=== PATIENT | female | born 1965 | race Caucasian/White ===

== ENCOUNTER 2020-06-26 15:23 | Outpatient (REF) | payer OTHER, SELFPAY ==
--- NOTE | 2020-06-26 15:27 | MM_ITS ---
EXAMINATION: MM SCREENING DIGITAL BREAST TOMOSYNTHESIS, BILATERAL CLINICAL INFORMATION: Screening. Asymptomatic. The lifetime risk of breast cancer based on the Tyrer-Cuzick Model is 9%. COMPARISON: Mammography: 02/02/2019, 01/28/2018, 06/04/2016 TECHNIQUE: Digital breast tomosynthesis is performed in both the craniocaudal and mediolateral oblique views along with computer-aided detection (CAD). Synthesized 2D images are generated from the tomosynthesis. FINDINGS: There are scattered areas of fibroglandular density (ACR BI-RADS breast composition Category b). There are no significant masses, abnormal calcifications, or other abnormalities. Axillary nodes stable. Skin contours are smooth. MM/MM tomosynthesis screening BI IMPRESSION: No mammographic evidence of malignancy. ASSESSMENT: BI-RADS 1: Negative RECOMMENDATION: Routine annual mammography screening. This patient's information was entered into a reminder system with a target due date for their next mammogram.
== END 2020-06-26 15:24 | disposition home or self-care (01) ==
LOC: HO.MAMMO 15:23
PROVIDERS: PCP Nurse Practitioner Family; Visit Provider Nurse Practitioner Family
DX: Z12.31 Encounter for screening mammogram for malignant neoplasm of breast (principal)
CPT/HCPCS: 77063; 77067

== ENCOUNTER 2021-07-09 14:43 | Outpatient (REF) | payer OTHER, SELFPAY ==
--- NOTE | ~2021-07-09 | MM_ITS ---
EXAMINATION: MM SCREENING DIGITAL BREAST TOMOSYNTHESIS, BILATERAL CLINICAL INFORMATION: Screening. Asymptomatic. The lifetime risk of breast cancer based on the Tyrer-Cuzick Model is 7%. COMPARISON: Mammography: 06/26/2020, 02/02/2019, 01/28/2018 TECHNIQUE: Digital breast tomosynthesis is performed in both the craniocaudal and mediolateral oblique views along with computer-aided detection (CAD). Synthesized 2D images are generated from the tomosynthesis. FINDINGS: There are scattered areas of fibroglandular density (ACR BI-RADS breast composition Category b). There are no significant masses, abnormal calcifications, or other abnormalities. Breast tissue composition borders on predominantly fatty. Background stromal markings are stable. No significant changes. MM/MM tomosynthesis screening BI IMPRESSION: No mammographic evidence of malignancy. ASSESSMENT: BI-RADS 1: Negative RECOMMENDATION: Routine annual mammography screening. This patient's information was entered into a reminder system with a target due date for their next mammogram.
== END 2021-07-09 14:44 | disposition home or self-care (01) ==
LOC: HO.MAMMO 14:43
PROVIDERS: Visit Provider Nurse Practitioner Family
DX: Z12.31 Encounter for screening mammogram for malignant neoplasm of breast (principal)
CPT/HCPCS: 77063; 77067

== ENCOUNTER 2022-07-11 14:40 | Outpatient (REF) | payer OTHER, SELFPAY ==
--- NOTE | ~2022-07-11 | MM_ITS ---
EXAMINATION: MM SCREENING DIGITAL BREAST TOMOSYNTHESIS, BILATERAL CLINICAL INFORMATION: Screening. Asymptomatic. The lifetime risk of breast cancer based on the Tyrer-Cuzick Model is 6%. COMPARISON: Mammography: 07/09/2021, 06/26/2020, 02/02/2019, 01/28/2018 TECHNIQUE: Digital breast tomosynthesis is performed in both the craniocaudal and mediolateral oblique views along with computer-aided detection (CAD). Synthesized 2D images are generated from the tomosynthesis. Additional right CC view is obtained. FINDINGS: There are scattered areas of fibroglandular density (ACR BI-RADS breast composition Category b). Breast tissue composition borders on predominantly fatty. Background stromal markings are normal. Right breast has interval benign-appearing oval circumscribed nodule anterior periareolar upper outer breast, under 1 cm. The remainder of the bilateral breasts are similar to prior studies. There is no architectural abnormality. No abnormal calcifications. The axilla and skin contours are unremarkable. MM/MM tomosynthesis screening BI IMPRESSION: Right: -Benign appearing smooth oval nodule periareolar right breast. Left: -No mammographic evidence of malignancy. ASSESSMENT: BI-RADS 0: Incomplete - Need Additional Imaging Evaluation RECOMMENDATION: 1. Targeted ultrasound right breast. 2. Radiology department staff will arrange for the additional imaging. This patient's information was entered into a reminder system with a target due date for their next mammogram.
== END 2022-07-11 14:41 | disposition home or self-care (01) ==
LOC: HO.MAMMO 14:40
PROVIDERS: Visit Provider Nurse Practitioner Family
DX: Z12.31 Encounter for screening mammogram for malignant neoplasm of breast (principal)
CPT/HCPCS: 77063; 77067

== ENCOUNTER 2022-07-16 15:27 | Outpatient (REF) | payer OTHER, SELFPAY ==
--- NOTE | ~2022-07-16 | US_ITS ---
EXAMINATION: US DIAGNOSTIC ULTRASOUND BREAST, RIGHT CLINICAL INFORMATION: Recall from screening for new oval nodule periareolar right breast. COMPARISON: Screening mammography 07/11/2022, 07/09/2021, 06/26/2020. TECHNIQUE: Ultrasound right breast is targeted to the upper outer periareolar region using grayscale imaging and color Doppler without and with harmonics. FINDINGS: There is a small circumscribed mildly complicated cyst around 0.5 cm at 9:00 position 4 cm from nipple with avascular internal septations. No associated color flow. There is increased through-transmission of sound. There is no solid mass, architectural abnormality, duct ectasia, or edema in the soft tissue planes. Results are discussed with the patient at time of visit. The ultrasound finding has benign appearance. US/US breast RT limited IMPRESSION: -Mildly complicated cyst 9:00 periareolar breast with fine internal septations corresponding to mammography. ASSESSMENT: BI-RADS 3: Probably Benign RECOMMENDATION: Targeted ultrasound right breast in 6 months. This patient's information was entered into a reminder system with a target due date for their next mammogram.
== END 2022-07-16 15:28 | disposition home or self-care (01) ==
LOC: HO.MAMMO 15:27
PROVIDERS: Visit Provider Nurse Practitioner Family
DX: R92.2 Inconclusive mammogram (principal)
CPT/HCPCS: 76642

== ENCOUNTER 2023-02-06 14:46 | Outpatient (REF) | payer OTHER, SELFPAY ==
--- NOTE | ~2023-02-06 | US_ITS ---
EXAMINATION: US DIAGNOSTIC ULTRASOUND BREAST, RIGHT CLINICAL INFORMATION: 6 month Follow-up right breast probably benign complicated cyst 9:00 axis, 4 cm from the nipple.. COMPARISON: 07/16/2022. TECHNIQUE: Ultrasound of the breast is performed with real-time dueñas scale imaging and color Doppler. FINDINGS: There is no focal suspicious finding. There is no solid mass, architectural abnormality, duct ectasia, or edema in the soft tissue planes. The previously seen complicated cyst has decreased significantly in size and no measures 3 mm in diameter at the 9:00 axis, 4 cm from the nipple. It now meets criteria for a simple cyst and is benign. No further follow-up recommended. Results were discussed with the patient at time of visit. US/US breast RT limited mamm only IMPRESSION: Benign 3 mm cyst right breast 9:00 axis. No findings suspicious for malignancy. Recommend the patient resume annual screening mammography. ASSESSMENT: BI-RADS 2: Benign RECOMMENDATION: Routine annual mammography screening. This patient's information was entered into a reminder system with a target due date for their next mammogram.
== END 2023-02-06 14:47 | disposition home or self-care (01) ==
LOC: HO.MAMMO 14:46
PROVIDERS: Visit Provider Nurse Practitioner Family
DX: R92.2 Inconclusive mammogram (principal)
CPT/HCPCS: 76642

== ENCOUNTER → 2023-02-06 15:00 | Outpatient (BNV) | payer OTHER, SELFPAY | PROVIDERS: Visit Provider Radiology Diagnostic Radiology | DX: N60.01 Solitary cyst of right breast (principal) | CPT/HCPCS: 76642 ==

== ENCOUNTER 2023-07-15 14:40 | Outpatient (REF) | payer OTHER, SELFPAY | END 2023-07-15 14:41 | disposition home or self-care (01) | LOC: HO.MAMMO 14:40 | PROVIDERS: PCP Nurse Practitioner Family; Visit Provider Nurse Practitioner Family | DX: Z12.31 Encounter for screening mammogram for malignant neoplasm of breast (principal) | CPT/HCPCS: 77063; 77067 ==

== ENCOUNTER → 2023-07-15 15:00 | Outpatient (BNV) | payer OTHER, SELFPAY | PROVIDERS: PCP Nurse Practitioner Family; Visit Provider Radiology Diagnostic Radiology | DX: Z12.31 Encounter for screening mammogram for malignant neoplasm of breast (principal) | CPT/HCPCS: 77063; 77067 ==

== ENCOUNTER 2023-08-27 09:40 | Outpatient (REF) | payer OTHER, SELFPAY ==
--- NOTE | ~2023-08-27 | XR_ITS ---
EXAMINATION: XR SHOULDER, RIGHT CLINICAL INFORMATION: Pain in right shoulder. COMPARISON: None available. TECHNIQUE: Two views of the right shoulder. FINDINGS: Mild degenerative changes in the acromioclavicular joint with joint space narrowing and hypertrophic change. Glenohumeral alignment preserved. Small calcifications in the soft tissue along the superolateral aspect of the humeral head are suggestive of rotator cuff pathology. Tiny calcification in the soft tissue superior to the glenoid. XR/XR shoulder RT min 2V IMPRESSION: 1. Mild degenerative changes in the acromioclavicular joint. 2. Small calcifications in the soft tissue along the superolateral aspect of the humeral head are suggestive of rotator cuff pathology.
== END 2023-08-27 09:41 | disposition home or self-care (01) ==
LOC: HO.HOSX 09:40
PROVIDERS: Visit Provider Orthopaedic Surgery
DX: M25.511 Pain in right shoulder (principal)
CPT/HCPCS: 73030

== ENCOUNTER 2023-08-27 14:44 | Outpatient (AMB) | payer OTHER, SELFPAY ==
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
== END 2023-08-27 15:24 | disposition home or self-care (01) ==
PROVIDERS: PCP Nurse Practitioner Family; Visit Provider Orthopaedic Surgery
DX: M25.511 Pain in right shoulder (principal)
CPT/HCPCS: 99202

== ENCOUNTER 2024-07-20 14:37 | Outpatient (REF) | payer BC, SELFPAY ==
--- OUTSIDE RECORDS SUMMARY | 2024-07-20 15:38 | XMS_ITS ---
Author Organization [facility] Address [address] [place] [address] Care Team Providers Care Vocational Education Teacher Name Role Phone Jessica Alexander NP Primary Care Provider Amy Lofton Unavailable [phone] Allergies Allergen (clinical drug ingredient) Drug/Non Drug Allergy documented on EMR Reaction Allergy Type Onset Date Status sulfamethoxazole / trimethoprim Bactrim Unknown Drug Allergy Active Eggs or Egg-derived Products Unknown Drug Allergy Active REASON FOR VISIT Pcp-02/23, Wart(s), Skin Problem Medications Medication SIG (Take, Route, Frequency, Duration) Notes Start Date End Date Status Ibuprofen 800 MG 1 tablet Orally Thre e times a day for 30 day(s) 07/04/2015 Not-Taking Gabapentin 400 MG 1 capsule Orally onc e a day at bedtime for 30 day(s) 08/01/2015 Not-Taking zzzAFO-fixed . 1 . Wear Daily for . 05/11/2015 Not-Taking Nitro-Bid 2 % as directed Transdermal apply bid to right forefoot for 30 days 08/16/2015 Not-Taking zzzAFO-fixed . 1 .please accomodate for painful mtpj skin lesion Wear Daily for . Not-Taking AFO-fixed . 1 . Wear daily for . 01/27/2020 Active Antibiotic 3x 10days Not-Ananda mata Clotrimazole-Betametha sone 1-0.05 % 1 application Externally Twice a day 05/05/2024 Active Simvastatin 20 MG as directed Orally Once a day Active Custom Orthotics as directed 10/24/2016 Active Social History Tobacco Use: Social History Observation Description Date Details (start date - stop date) Current Smoker NA - NA Tobacco Use/Smoking Question Answer Notes Are you a: current smoker How often do you smoke cigarettes? every day How many cigarettes a day do you smoke? 6-10 Tobacco use other than smoking: Question Answer Notes Are you an other tobacco user? No Problems Problem Type SNOMED Code ICD Code Onset Dates Problem Status W/U Status Risk Notes Problem Plantar wart (32588718) Plantar wart (B07.0) Active confirmed Vital Signs Height 5ft6in in 05/05/2024 Weight 155 lbs 05/05/2024 BMI 25.01 kg/m2 05/05/2024 Blood pressure systolic 124 mm Hg 05/05/20 24 Blood pressure diastolic 75 mm Hg 024 Procedures Procedure Date Ordered Date Performed Result Body Sit e 56602-Fnze Destruction, 1-14 05/05/2024 N/A Encounters Encounter Location Date Provider Diagnosis [facility] [address] [address] 05/05/2024 Amy Raza Right foot pain M79.671 ; Left foot pain M79.672 ; Skin rash R21 ; Nummular eczematous dermatitis L30.0 and Plantar wart B07.0 Assessments Encounter Date Diagnosis (ICD Code) Assessment Notes Treatment Notes Treatment Clinical Notes Section Notes 05/05/2024 Right foot pain (ICD-10 - M79.671) 05/05/2024 Left foot pain (ICD-10 - M79.672) 05/05/2024 Skin rash (ICD-10 - R21) 05/05/2024 Nummular eczematous dermatitis (ICD-10 - L30.0) 05/05/2024 Plantar wart (ICD-10 - B07.0) Plan Of Treatment Medication Medication Name Sig Start Date Stop Date Notes Clotrimazole-Betamethasone 1-0.05 % 1 application Externally Twice a day 05/05/2024 Pending Test Test Name Order Date 54980-Coqo Destruction, 1-14 05/05/2024 Next Appt Details Follow Up: prn, Reason: Provider Name:Amy floyd, 09/15/2024 03:15:00 PM, [address] [place], [address], Procedure Notes * Category Sub-Category Detail Notes Wart Treatment Procedure Verruca, as desc ribed in exam, were debrided to pin- point bleeding margins with sterile 15 surgical blade, silver nitrate chemocautery applied, recomm. immune-boosting meds such as zinc, recomm. follow up with topical chemosurgical agents, Pt defers any other forms of tx - 38004 Progress Notes * Deonna SWEENEYOB:1965 (59 yo F)Acc No.[id number]:05/05/2024 Progress Note Patient:?Brianda SWEENEY Provider:?Amy Raza DPM :1965???Age:59 Y???Sex:Female D ate:05/05/2024 Address:[address] [place] [address] Alexandre brewerENCOMPASS HEALTH RE[facility]ABIL[facility] H[facility] SHELBY COUNTYUJ-[id number] Pcp:Jessica Alexander NP Subjective: * Chief Complaints: * ???Pcp-02/23Wart(s)Skin Prob gail * HPI: ???Skin problems:?Pt States PCP Visit: ?DATE?02/18/2024 ?Nature:?itching.?Location:?B/L .?Duration:?several days.?Course:?worse.?Treatments:?medication ( Eucerin).? * ROS:?General/Constitutional:?Nausea?denies.?Vomiting?denies.?Hunger Thirst?denies.?Loss appetite?denies.?Chills?denies.?Fatigue?denies.?Fever?denies.?Night Sweats?denies.?Unexplained weight loss?denies.?Unexplained weight gain?denies.?HEENTM:?Dentures?denies.?Dizziness?denies.?Glasses/contacts?admits.?Retinopathy?de nies.?Blurred/double vision?denies.?TMJ?denies.?Discharge/drainage?denies.?Implants?denies.?Sore throat?denies.?Dental implants?denies.?Hard of hearing ?denies.?Difficulty chewing/swallowing/speaking?denies.?Nose bleeds?denies.?Sore mouth?denies.?Respiratory:?On Oxygen?denies.?Pneumonia/pleurisy?denies.?Bronchitis?denies.?Emphysema?denies.?C oughing?denies.?Cough blood?denies.?Shortness of breath?denies.?Wheezing?denies.?Cardiovascular:?Pacemaker?denies.?MVP?denies.?WPW?denies.?CHF?denies.?Heart attack?denies.?Septal defect?denies.?Rapid beat?denies.?Chest pain ?denies.?Atrial Fib.?denies.?Murmur/Palpitations?denies.?Gastrointestinal:?Hemorrhoids?denies.?Stomach/Abdominal pain?denies.?Dark blood stool?denies.?Irritable bowel ?denies.?Constipation?denies.?Diarrhea?denies.?Hematology:?Swelling?admits.?Clots?denies.?Varicose Veins?denies.?Bruising?denies.?Bleeding problem?denies.?Genitourinary:?Blood urine?denies.?Frequent/Painfu/urination/bladder control?denies.?Kidney stones?denies.?Infection (UTI)?denies.?Nephropathy?denies.?sex trans dis (STD)?denies.?Prostate?denies.?Musculoskeletal:?Hammertoes?admits.?Bunions?admits.?Back Pain?admits.?Muscle Cramps/ Resting?denies.?Muscle cramps / walking?denies.?Generalized aches and pains?denies.?Weakness?denies.?Integ.:?Garibay?denies.?Scars?denies.?Corns/calluses?admits.?Ingrown nails?denies.?Painful nails?denies.?Open Sores?denies.?Rashes?denies.?Neurologic:?Difficulty sleeping?denies.?Brain disorder?denies.?Numbness?denies.?Balance trouble?denies.?Confusion?denies.?Fainting/blackouts?denies.?Tingling?denies.?Tr emors?denies.? * Medical History:? * Surgical History:?hysterecto my 06/2012foot surgery HT right 4th 07/2015 * Hospitalization/Major Diagno stic Procedure:?[facility] [place] Right Foot Surgery from cut on leg 07/18/2015PCP - called Given Antibiotics 12/2021Urgent care - Cut leg got infection given Antibiotics 2x for 10 days 10/2021 * Family History:?Mother: chantel james?Father: , kidney/liver disease, diagnosed with Unspecified heart disease.?Daughter(s): alive.?Son(s): alive.?Spouse: alive.?2 son(s) , 1 daughter(s) . .? * Social History:?Tobacco Use:?Tobacco Use/Smoking?Are you a:?current smoker ?How often do you smoke cigarettes??every day ?How many cigarettes a day do you smoke??6-10 ?Tobacco use other than smoking?Are you an other tobacco user??No * Medications:?TakingSimvastat in 20 MG Tablet as directed Orally Once a day Custom Orthotics as directed AFO-fixed . Ankle-Foot Orthotic 1 . Wear daily Taking Simvastatin 20 MG Tablet as directed Orally Once a day Taking Custom Orthotics as directed Taking AFO-fixed . Ankle-Foot Orthotic 1 . Wear daily Not-Taking/PRNAntibiotic , Notes to Pharmacist: 3x 10dayszzzAFO-fixed . Ankle- Foot Orthotic 1 .please accomodate for painful mtpj skin lesion Wear Daily zzzAFO- fixed . Ankle-Foot Orthotic 1 . Wear Daily Nitro-Bid 2 % Ointment as directed Transdermal apply bid to right forefoot Ibuprofen 800 MG Tablet 1 tablet Orally Three times a day Gabapentin 400 MG Capsule 1 capsule Orally once a day at bedtime Medication List reviewed and reconciled with the patientNot-Taking/PRN Antibiotic , Notes to Pharmacist: 3x 10daysNot-Taking/PRN zzzAFO-fixed . Ankle-Foot Orthotic 1 .please accomodate for painful mtpj skin lesion Wear Daily Not-Taking/PRN zzzAFO-fixed . Ankle-Foot Orthotic 1 . Wear Daily Not-Taking/PRN Nitro-Bid 2 % Ointment as directed Transdermal apply bid to right forefoot Not-Taking/PRN Ibuprofen 800 MG Tablet 1 tablet Orally Three times a day Not-Taking/PRN Gabapentin 400 MG Capsule 1 capsule Orally once a day at bedtime Medication List reviewed and reconciled with the patient * Allergies:?BactrimEggs or Eg g-derived Productsyes[Allergies Verified] Objective: * Vitals:?Ht: 5ft6in, Wt:155, BMI:25.01, Shoe size: 7.5-8, BP:124/75mm Hg, Ht-cm: 167.64 cm, Wt-k.31 kg. * Examination: ???Dermatologic: ?SKIN FINDINGS:? Skin exam reveals Keratotic lesion(s) located at, SUB MTH (s), 3, B/L, Plantar, IPJ, TA, Skin exam reveals Keratotic lesion(s) located at, Medial, DIPJ, T9, Lateral, T8, TA, T1--btw toes , Skin shows sign(s) of, eczema patch(es), pruritus, excoriations, erythema, inflammation, B/L .?VERRUCA:?Reveals Multiple ( __2_ ), multi-loculated , mosaic, round, raised, flat-topped, petechial bleeding papulae(s), with cauliflower appearance and interrruption of skin lines, with pain to lateral compression, and size estimated at __2__ mm diameter, plantar Midfoot, B/L.?Neurological: ?SENSORY:?Neurological exam reveals intact sensorium, pain sensation normal, vibration sensation intact, pinprick sensation is normal in the lower extremities, Pt denies, anesthesia, burning, paresthesia, tingling, B/L.?Vascular: ?DP PULSES(B):?2/4, B/L.?PT PULSES(B):?2/4, B/L.? Assessment: * Assessment: 1.?Right foot pain - M79.671 (Primary)???2.?Left foot pain - M79.672???3.?Skin rash - R21???4.?Nummular eczematous dermatitis - L30.0???5.?Plantar wart - B07.0??? Plan: * Treatment: 2.?Plantar wart?Procedure: [id number]-Abrq Destruction, 14 * Procedures:?Wart Treatment:?Procedure?Verruca, as described in exam, were debrided to pin-point bleeding margins with sterile 15 surgical blade, silver nitrate chemocautery applied, recomm. immune-boosting meds such as zinc, recomm. follow up with topical chemosurgical agents, Pt defers any other forms of tx - 88423.? * Procedure Codes:?16673 Wart Destruction, -14, Modifiers: XS , GY * Preventive Medicine:? ??Counseling:?Discussion:?-13: Office or other outpatient visit for the evaluation and management of an established patient, which required a medically appropriate history and/or examination and LOW level of DECISION MAKING for: 1 STABLE ACUTE UNCOMPLICATED PROBLEM, 2 OR MORE MINOR PROBLEMS, OR 1 STABLE CHRONIC PROBLEM, THAT POSE(S) A LOW RISK FOR MORBIDITY/MORTALITY. The visit on the day of the encounter encompassed interpreting the data and educating the patient as to the nature of their condition, treatment options available according to their individual PMH, meds, allergies, and overall health/living conditions, as well as any potential risks or complications that may occur from a failure to adhere to, and participate in, the recommended course of therapy. The discussion included a complete verbal, and/or written explanation of the examination results, any x-rays taken, the proposed diagnosis, and outline of the treatment plan. A schedule for future care needs was also explained. The patient verbalized an understanding of the instructions at this time and agreed to be an active participant in their treatment. If the patient should think of any questions or concerns after the visit, I have encouraged the patient to call the office.?Dermatitis:?The patient was counseled on the diagnosis, potential etiologies, and treatment options for their skin condition. We discussed the risks and benefits of each option from performing no treatment, to utilizing OTC topical skin creams/ointments, to utilizing prescription topical creams/ointments, to utilizing customized compounded topical medications and use of nocturnal occlusion with any/all previously detailed therapies. We discussed the advantages and disadvantages of each possible treatment and importance for adherence to all the recommended therapies for optimum success and avoid potential complications such as open sore/infection/possible hospitalization. We discussed the potential effectiveness of each topical preparation as well as each ones possible side effects and/or patient medication interactions. Patient questions re: use, dosage, successful outcomes, and application consistency were reviewed and the patient verbalized that all answers were clearly understood. The patient has decided to apply Rx Hydrocortisone skin creams to their feet save the interspaces. Such was sent to their pharmacy at the time of visit.? * Follow Up:?prn * Images: * Sign off status: Completed true * Provider:?Amy Raza DPM Date:?07/06/2023 Generated for Dillon senior/Dell/Consueloitting on:?07/20/2024 03:38 PM EST History and Physical Notes * HPI (History of Present Illness) Category Sub-Category Detail Notes Category Not es Skin problems Nature: itching Location: B/L Duration: several days Course: worse Treatments: medication ( Eucerin ) Pt States PCP Visit: DATE: 02/18/2024 Examination Category Sub-Category Detail Notes Category Not es Neurological SENSORY: Neurological exa m reveals intact sensorium, pain sensation normal, vibration sensation intact, pinprick sensation is normal in the lower extremities, Pt denies, anesthesia, burning, paresthesia, tingling, B/L Dermatologic SKIN FINDINGS: Skin exam reveal s Keratotic lesion(s) located at, SUB MTH (s), 3, B/L, Plantar, IPJ, TA, Skin exam reveals Keratotic lesion(s) located at, Medial, DIPJ, T9, Lateral, T8, TA, T1--btw toes , Skin shows sign(s) of, eczema patch(es), pruritus, excoriations, erythema, inflammation, B/L VERRUCA: Reveals Multiple ( _ _2_ ), multi-loculated , mosaic, round, raised, flat-topped, petechial bleeding papulae(s), with cauliflower appearance and interrruption of skin lines, with pain to lateral compression, and size estimated at __2__ mm diameter, plantar Midfoot, B/L Vascular DP PULSES (B): 2/4, B/L PT PULSES (B): 2/4, B/L
--- OUTSIDE RECORDS SUMMARY | 2024-07-20 15:38 | XMS_ITS ---
Author Organization [facility] Address [address] [place] [address] Care Team Providers Care Diet Aide Name Role Phone Jessica Alexander NP Primary Care Provider UnavailAmy Majano Unavailable [phone] Petey Ryan Unavailable [phone] Allergies Allergen (clinical drug ingredient) Drug/Non Drug Allergy documented on EMR Reaction Allergy Type Onset Date Status sulfamethoxazole / trimethoprim Bactrim Unknown Drug Allergy Active Eggs or Egg-derived Products Unknown Drug Allergy Active REASON FOR VISIT Noncovered Foot Care--pt is hypersensitive and needs TLC care for painful eccrine poroma's yulissa feet, Last Visit PCP 01/2023 Medications Medication SIG (Take, Route, Frequency, Duration) Notes Start Date End Date Status zzzAFO-fixed . 1 .please accomodate for painful mtpj skin lesion Wear Daily for . Not-Taking zzzAFO-fixed . 1 . Wear Daily for . 05/11/2015 Not-Taking Nitro-Bid 2 % as directed Transder mal apply bid to right forefoot for 30 days 08/16/2015 Not-Taking Ibuprofen 800 MG 1 tablet Orally Thre e times a day for 30 day(s) 07/04/2015 Not-Ta ahmet Gabapentin 400 MG 1 capsule Orally onc e a day at bedtime for 30 day(s) 08/01/2015 Not-Taking Simvastatin 20 MG as directed Orally O nce a day Active Custom Orthotics as directed 10/24/2016 Active AFO-fixed . 1 . Wear daily for . 01/27/2020 Active Antibiotic 3x 10days Not-Takin g Social History Tobacco Use: Social History Observation Description Date Details (start date - stop date) Current Smoker NA - NA Tobacco Use/Smoking Question Answer Notes Are you a: current smoker How often do you smoke cigarettes? every day How many cigarettes a day do you smoke? 6-10 Tobacco use other than smoking: Question Answer Notes Are you an other tobacco user? 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 Assessments Encounter Date Diagnosis (ICD Code) Assessment Notes Treatment Notes Treatment Clinical Notes Section Notes 02/04/2024 Acquired keratosis [keratoderma] palmaris et plantaris (ICD-10 - L85.1) 02/04/2024 Other nail disorders (ICD-10 - L60.8) 02/04/2024 Other hammer toe(s) (acquired), right foot (ICD-10 - M20.41) 02/04/2024 Other hammer toe(s) (acquired), left foot (ICD-10 - M20.42) 02/04/2024 Eccrine poroma (ICD-10 - D23.9) Plan Of Treatment Next Appt Details Follow Up: 3 Months, Reason: Non-covered footcare Provider Name:Amy floyd, 09/15/2024 03:15:00 PM, [address] [place] [address], [phone], Procedure Notes * Category Sub-Category Detail Notes Keratoma Treatment Parring or Cutting o f Benign Hyperkeratotic Lesion(s) 13036-KM Self Pay Non-Covered Callus care- $ __75_ Nail Reduction Nail Reduction 15640-NQ Trimmin g of non-dystrophic nails Progress Notes * Deonna SWEENEYOB:1965 (58 yo F)Acc No.[id number]:02/04/2024 Progress Note Patient:?Brianda Sweeney Provider:?Petey Ryan DPM :1965???Age:58 Y???Sex:Female D ate:02/04/2024 Address:[address] [place] [address], [place] [id number] Pcp:Jessica Alexander NP Subjective: * Chief Complaints: * ???Noncovered Foot Care--pt is hypersensitive and needs TLC care for painful eccrine poroma's yulissa feetLast Visit PCP 01/2023 * ROS:?General/Constitutional:?Nausea?denies.?Vomiting?denies.?Hunger Thirst?denies.?Loss appetite?denies.?Chills?denies.?Fatigue?denies.?Fever?denies.?Night Sweats?denies.?Unexplained weight loss?denies.?Unexplained [...] right 4th 07/2015 * Hospitalization/Major Diagno stic Procedure:[place] [place] on leg [...] than smoking?Are you an other tobacco user??No ???Miscellaneous:?Caffeine: yes, more than 4 cups per day. ?Children: yes, 3. ?Exercise: yes, Active / work. ?Marital status: . ?Occupation: [employer]. * Medications:?TakingSimvastat in 20 MG Tablet as directed Orally Once a dayCustom Orthotics as directed AFO-fixed . Ankle-Foot Orthotic 1 . Wear dailyTaking Simvastatin 20 MG Tablet as directed Orally Once a dayTaking Custom Orthotics as directed Taking AFO-fixed . Ankle-Foot Orthotic 1 . Wear dailyNot-Taking/PRNAntibiotic , Notes: 3x 10dayszzzAFO-fixed . Ankle-Foot Orthotic 1 .please accomodate for painful mtpj skin lesion Wear DailyzzzAFO-fixed . Ankle- Foot Orthotic 1 . Wear DailyNitro-Bid 2 % Ointment as directed Transdermal apply bid to right forefootIbuprofen 800 MG Tablet 1 tablet Orally Three times a dayGabapentin 400 MG Capsule 1 capsule Orally once a day at bedtimeMedication List reviewed and reconciled with the patientNot-Taking/PRN Antibiotic , Notes: 3x 10daysNot- Taking/PRN zzzAFO-fixed . Ankle-Foot Orthotic 1 .please accomodate for painful mtpj skin lesion Wear DailyNot-Taking/PRN zzzAFO-fixed . Ankle-Foot Orthotic 1 . Wear DailyNot-Taking/PRN Nitro-Bid 2 % Ointment as directed Transdermal apply bid to right forefootNot-Taking/PRN Ibuprofen 800 MG Tablet 1 tablet Orally Three times a dayNot-Taking/PRN Gabapentin 400 MG Capsule 1 capsule Orally once a day at bedtimeMedication List reviewed and reconciled with the patient * Allergies:?BactrimEggs or Eg g-derived Productsyes[Allergies Verified] Objective: * Vitals:?Ht: 5ft6in, Wt:154, BMI:24.85, Shoe size: 7.5-8, Ht-cm: 167.64 cm, Wt- k.85 kg. * Examination: ???Neurological: ?SENSORY:?Neurological exam reveals intact sensorium, pain sensation normal, vibration sensation intact, pinprick sensation is normal in the lower extremities, Pt denies, anesthesia, burning, paresthesia, tingling, B/L.?Dermatologic: ?SKIN FINDINGS:? Skin exam reveals Keratotic lesion(s) located at, SUB MTH (s), 3, B/L, Plantar, IPJ, TA, Skin exam reveals Keratotic lesion(s) located at, Medial, DIPJ, T9, Lateral, T8, TA, T1--btw toes.?VERRUCA:?reveals Multiple ( __2_ ), multi-loculated , mosaic, round, raised, flat-topped, petechial bleeding papulae(s), with cauliflower appearance and interrruption of skin lines, with pain to lateral compression, and size estimated at __2__ mm diameter, plantar Midfoot, B/L.?Vascular: ?DP PULSES:?2/4, B/L .?PT PULSES:?2/4, B/L .?Orthopedic: ?FOOT MORPHOLOGY:? Pes Planus structure--more severe right.?DIGITAL DEFORMITIES:? Digital contracture T6 and T7.?Nails: ?NAILS are:? Elongated, overgrown, dystrophic, lytic, greater than 3mm thick, discolored and friable with crumbly malodorous subungual debris, T9 , elongated,overgrown, and non-dystrophic.? 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 Plan: * Treatment: * Procedures:?Keratoma Treatment:?Parring or Cutting of Benign Hyperkeratotic Lesion(s)?14935-VI Self Pay Non-Covered Callus care- $ __75_.?Nail Reduction:?Nail Reduction?06000-PJ Trimming of non-dystrophic nails.? * Procedure Codes:?72642 TRIM SKIN LESIONS, OVER 4, Modifiers: GY * Follow Up:?3 Months (Reason: Non-covered footcare) * Images: * Sign off status: Completed true * Provider:?Petey Ryan DPM Date:? 024 Generated for Dillon senior/Dell/eTnaasmitting on:?07/20/2024 03:38 PM EST History and Physical Notes * Examination Category Sub-Category Detail Notes Category Not [...] DIPJ, T9, Lateral, T8, TA, T1--btw toes VERRUCA: reveals Multiple ( _ _2_ ), multi-loculated , mosaic, round, raised, flat-topped, petechial bleeding papulae(s), with cauliflower appearance and interrruption of skin lines, with pain to lateral compression, and size estimated at __2__ mm diameter, plantar Midfoot, B/L Orthopedic FOOT MORPHOLOGY: Pes Planus structure--mo re severe right DIGITAL DEFORMITIES: Digital contracture T6 and T7 Vascular DP PULSES (B): 2/4, B/L PT PULSES (B): 2/4, B/L Nails NAILS are: Elongated, overg rown, dystrophic, lytic, greater than 3mm thick, discolored and friable with crumbly malodorous subungual debris, T9 , elongated,overgrown, and non-dystrophic
--- OUTSIDE RECORDS SUMMARY | 2024-07-20 15:38 | XMS_ITS ---
Author Organization [facility] Address [address] [place] [address] Care Team Providers Care Head Screen Worker Name Role Phone Jessica Alexander NP Primary Care Provider UnavailAmy Majano Unavailable [phone] Petey Ryan [phone] Encounters Encounter Location Date Provider Diagnosis [address] [address] 02/04/2024 Petey Ryan Plan Of Treatment Next Appt Details Provider Name:Amy floyd, 09/15/2024 03:15:00 PM, [address] [place] [address], [phone], Progress Notes * ZAHRADeonnaOB:1965 (59 yo F)Acc No.[id number]:02/04/2024 Progress Note Patient:?Brianda SWEENEY Provider:?Petey Ryan DPM :1965???Age:58 Y???Sex:Female D ate:02/04/2024 [address] [address] [id number] Pcp:Jessica Alexander NP Subjective: * Chief Complaints: * ??? * Medical History:? Objective: * Vitals:? Assessment: Plan: * Treatment: * Images: * The named appointment provid er may or may not be the originator of this progress note, and it is not deemed complete until electronically signed by the appointment provider. Sign off status: Pending * Provider:Baylee Ryan DPM Date:? 024 Generated for Dillon senior/Dell/Екатерина on:?07/20/2024 03:38 PM EST
--- OUTSIDE RECORDS SUMMARY | 2024-07-20 15:38 | XMS_ITS | Patient Health Record ---
[facility] Address [address] [facility] [place] [address] Care Team Providers Care Home Fire Alarm Installer Name Role Phone Jessica Alexander NP Primary Care Provider UnavailAmy Majano Unavailable [phone] Petey Ryan Unavailable [phone] Allergies Allergen (clinical drug ingredient) Drug/Non Drug Allergy documented on EMR Reaction Allergy Type Onset Date Status sulfamethoxazole / trimethoprim Bactrim Unknown Drug Allergy Active Eggs or Egg-derived Products Unknown Drug Allergy Active Reason For Referral No Information Medications Medication SIG (Take, Route, Frequency, Duration) Notes Start Date End Date Status AFO-fixed . 1 . Wear daily for . 01/27/2020 Active Antibiotic 3x 10days Not-Takin g Clotrimazole-Betametha sone 1-0.05 % 1 application Externally Twice a day 05/05/2024 Active Simvastatin 20 MG as directed Orally Once a day Active Custom Orthotics as directed 10/24/2016 Active Ibuprofen 800 MG 1 tablet Orally Thre [...] skin lesion Wear Daily for . Not-Taking Immunizations Vaccine Route Administration Date Status Comme nts COVID-19 Perez [employer] Perez/Maru Unknown 04/11/2021 R efused Influenza Unknown 05/05/2019 Refused PT IS ALLERGIC Social History Tobacco Use: Social History Observation Description Date Details (start date - stop date) Current Smoker NA - NA Tobacco Use/Smoking Question Answer Notes Are you a: current smoker How often do you smoke cigarettes? every day How many cigarettes a day do you smoke? 6-10 Alcohol Screen Question Answer Notes Did you have a drink contain ing alcohol in the past year? Yes How often did you have a dri nk containing alcohol in the past year? 4 or more times a week (4 points) Points 4 Interpretation Positive Tobacco use other than smoking: Question Answer Notes Are you an other tobacco user? No Problems Problem Type SNOMED Code ICD Code Onset Dates Problem Status W/U Status Risk Notes Problem Pain in right foot (009820266783375) Pain in right foot (M79.671) Active confirmed Problem Plantar wart (87275237) Plantar wart (B07.0) Active confirmed Problem Localized, primary osteoarthritis of the ankle and/or foot (041375046) Primary osteoarthrit is, right ankle and foot (M19.071) Active confirmed Problem Localized, primary osteoarthritis of the ankle and/or foot (869680593) Primary osteoarthrit is, left ankle and foot (M19.072) Active confirmed Problem Acquired hammer toe of right foot (5984413422628685) Other hammer toe(s) (acquired), right foot (M20.41) Active confirmed Problem Acquired hammer toe of left foot (7709669462818576) Other hammer toe(s) (acquired), left foot (M20.42) Active confirmed Vital Signs Blood pressure diastolic 75 mm Hg 05/05/2024 Height 5ft6in in 05/05/2024 Blood pressure systolic 124 mm Hg 05/05/2024 Weight 155 lbs 05/05/2024 BMI 25.01 kg/m2 05/05/2024 Procedures Procedure Date Ordered Date Performed Result Body Sit e 14039-Bqbg Destruction, 1-14 05/05/2024 N/A Encounters Encounter Location Date Provider Diagnosis [facility] [address] [address] 09/01/2023 Petey Ryan Acquired keratosis [keratoderma] palmaris et plantaris L85.1 ; Other nail disorders L60.8 ; Other hammer toe(s) (acquired), right foot M20.41 ; Other hammer toe(s) (acquired), left foot M20.42 and Eccrine poroma D23.[address] [address] 02/04/2024 Petey Ryan Acquired keratosis [keratoderma] palmaris et plantaris L85.1 ; Other nail disorders L60.8 ; Other hammer toe(s) (acquired), right foot M20.41 ; Other hammer toe(s) (acquired), left foot M20.42 and Eccrine poroma D23.[address] [address] 05/05/2024 Amy Daughertyaker Right foot pain M79.671 ; Left foot pain M79.672 ; Skin rash R21 ; Nummular eczematous dermatitis L30.0 and Plantar wart B07.[address] [address] 10/07/2023 Petey Ryan Assessments Encounter Date Diagnosis (ICD Code) Assessment Notes Treatment Notes Treatment Clinical Notes Section Notes 09/01/2023 Other nail disorders (ICD-10 - L60.8) 09/01/2023 Acquired keratosis [keratoderma] palmaris et plantaris (ICD-10 - L85.1) 02/04/2024 Other nail disorders (ICD-10 - L60.8) 02/04/2024 Acquired keratosis [keratoderma] palmaris et plantaris (ICD-10 - L85.1) 05/05/2024 Right foot pain (ICD-10 - M79.671) 05/05/2024 Left foot pain (ICD-10 - M79.672) 05/05/2024 Skin rash (ICD-10 - R21) 02/04/2024 Other hammer toe(s) (acquired), right foot (ICD-10 - M20.41) 09/01/2023 Other hammer toe(s) (acquired), right foot (ICD-10 - M20.41) 09/01/2023 Other hammer toe(s) (acquired), left foot (ICD-10 - M20.42) 02/04/2024 Other hammer toe(s) (acquired), left foot (ICD-10 - M20.42) 05/05/2024 Nummular eczematous dermatitis (ICD-10 - L30.0) 02/04/2024 Eccrine poroma (ICD-10 - 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) 05/05/2024 Plantar wart (ICD-10 - B07.0) 09/01/2023 Eccrine poroma (ICD-10 - D23.9) Plan Of Treatment Pending Test Test Name Order Date X ray : Foot, right 2V 07/25/2015 X ray : Foot, right 2V 08/01/2015 X ray : Foot, right 2V 10/05/2015 X ray : Foot, right 2V 08/22/2015 X ray : Foot, right 3V 10/24/2016 X ray : Foot, right 3V 05/11/2015 79166-Hkwo Destruction, 1-14 06/13/2015 18559-Sjoe Destruction, 1-14 07/04/2015 32092-Dxxt Destruction, 1-14 05/11/2015 59304-Ifmx Destruction, 1-14 02/17/2017 23518-Xlkt Destruction, 1-14 05/05/2024 38519-Nezp Destruction, 1-14 10/05/2015 59183- Debride <25 sq cm 05/11/2015 12856- Debride <25 sq cm 08/11/2015 42409- Debride <25 sq cm 08/16/2015 24903- Debride <25 sq cm 08/22/2015 Next Appt Details Provider Name:Amy floyd, 09/15/2024 03:15:00 PM, [address] [facility], [place], [address], Medical (General) History Surgical History Surgery Date(Month/Year) hysterectomy 06/2012 foot surgery HT right 4th 07/2015 Hospitalization History Reason Date(Month/Year) Urgent care - Cut leg got infection give n Antibiotics 2x for 10 days 10/2021 PCP - called Given Antibiotics 12/2021 [facility] [place] Right Foot Surgery from cut on leg 0 07/18/2015
== END 2024-07-20 14:38 | disposition home or self-care (01) ==
LOC: HO.MAMMO 14:37
PROVIDERS: PCP Physician Assistant Surgical; Visit Provider Physician Assistant Surgical
DX: Z12.31 Encounter for screening mammogram for malignant neoplasm of breast (principal)
CPT/HCPCS: 77063; 77067

== ENCOUNTER → 2024-07-20 15:00 | Outpatient (BNV) | payer BC, SELFPAY | PROVIDERS: PCP Physician Assistant Surgical; Visit Provider Internal Medicine | DX: Z12.31 Encounter for screening mammogram for malignant neoplasm of breast (principal) | CPT/HCPCS: 77063; 77067 ==